=== PATIENT | male | born 1945 | race Caucasian/White ===

== ENCOUNTER 2022-02-02 05:16 | Emergency (ER) | payer MEDICARE, OTHER ==
[~2022-02-02] VITALS: Ht 177.8 cm; Wt 134.5 kg
[~2022-02-02 05:16] MED LIST: ALTACE2.5 M1 PO; ALTACE5 MG OR; AMOX/K CLAV500 MG PO; CIPRO500 MG OR; CLONIDINE0.2 MG OR; CLONIDINE0.2 MG PO; MAXZIDE-2537.5 MG/TA PO; METO50TA52 OR; METOPROL TAR25 MG PO; NYSTATIN100000 M3 TOP; TRIAMCINOLONE A0.12 EX; VICODIN ES1 TAB OR
[2022-02-02 05:33] VITALS: BP 183/91
[2022-02-02 06:01] VITALS: BP 167/78
[2022-02-02 06:05] LABS: HEMATOCRIT 43.2 % (39.0-50.0); HEMOGLOBIN 14.7 g/dl (14.0-18.0); IMMATURE GRANULOCYTES 0.1 % (0.0-5.0); MEAN CELL VOLUME 101.9 fL CALC (80.0-100.0); MEAN CORPUSCULAR HGB 34.7 pG CALC (26.0-32.0); NEUT# 3.99 thou/uL (1.82-7.42); RED BLOOD COUNT 4.24 mill/uL (4.70-6.10)
[2022-02-02 06:32] LABS: ALBUMIN 3.9 g/dL (3.2-5.0); ALKALINE PHOSPHATASE 65 u/l (38-126); ANION GAP 12 (6-22 (CALC)); BILIRUBIN, TOTAL 0.8 mg/dL (0.0-1.4); BUN 15 mg/dL (8-23); BUN/CREATININE RATIO 18 (12-20 (CALC)); CARBON DIOXIDE 24 mmol/l (22-30); CHLORIDE 103 mmol/l (95-108); CREATININE 0.8 mg/dL (0.7-1.3); GFR > 60 ML/MIN (>=60 (CALC)); GFR FOR AFR.AMER. > 60 ML/MIN (>=60 (CALC)); SGOT/AST 44 u/l (19-48); SODIUM 135 mmol/l (137-146); TOTAL PROTEIN 6.7 g/dL (6.3-8.2)
[2022-02-02 06:44] LABS: MYOGLOBIN 55 ng/mL (0 - 121)
[2022-02-02] MEDS ORDERED: EUTHYROX100 MCG PO (06:48)
[2022-02-02 06:53] VITALS: BP 187/95
[2022-02-02 07:01] VITALS: BP 175/85
[2022-02-02] MEDS ORDERED: HYDROCO/APAP1 TA9 PO (07:27)
[2022-02-02 07:31] VITALS: BP 163/90
[2022-02-02 08:08] VITALS: BP 163/90
== END 2022-02-02 08:08 | disposition home or self-care (01) ==
LOC: ED 05:16
PROVIDERS: Emergency Medicine
DX: M47.816 Spondylosis without myelopathy or radiculopathy, lumbar region (principal); M17.11 Unilateral primary osteoarthritis, right knee; M47.814 Spondylosis without myelopathy or radiculopathy, thoracic region; M47.812 Spondylosis without myelopathy or radiculopathy, cervical region; I10 Essential (primary) hypertension; Z95.5 Presence of coronary angioplasty implant and graft

== ENCOUNTER 2022-02-08 04:46 | Emergency (ER) | payer MEDICARE, OTHER ==
[~2022-02-08] VITALS: Ht 177.8 cm; Wt 132.7 kg
[~2022-02-08 04:46] MED LIST changes: +EUTHYROX100 MCG PO; +HYDROCO/APAP1 TA9 PO
[2022-02-08] MEDS ORDERED: ASPIRIN81 MG PO (05:18)
[2022-02-08] MEDS ORDERED: DIOVAN160 MG PO (05:18)
[2022-02-08 05:31] VITALS: BP 169/87
[2022-02-08 05:46] VITALS: BP 170/90
[2022-02-08 06:01] VITALS: BP 158/84
[2022-02-08 06:16] VITALS: BP 163/82
[2022-02-08] MEDS ORDERED: VOLTAREN75 MG PO (06:19)
[2022-02-08] MEDS ORDERED: TRAMADOL HCL50 MG PO (06:19)
[2022-02-08 06:35] VITALS: BP 163/82
== END 2022-02-08 06:36 | disposition home or self-care (01) ==
LOC: ED 04:46
DX: M15.9 Polyosteoarthritis, unspecified (principal); I10 Essential (primary) hypertension; Z95.5 Presence of coronary angioplasty implant and graft

== ENCOUNTER 2022-10-01 04:40 | Emergency (ER) | payer MEDICARE, OTHER ==
[2022-10-01] VITALS (32 sets, daily range): BP systolic 114–200; BP diastolic 57–120
[~2022-10-01] VITALS: Ht 177.8 cm; Wt 139.0 kg
[~2022-10-01 04:40] MED LIST changes: +ASPIRIN81 MG PO; +DIOVAN160 MG PO; +TRAMADOL HCL50 MG PO; +VOLTAREN75 MG PO
[2022-10-01] MEDS ORDERED: RAMIPRIL2.5 MG PO (05:47)
[2022-10-01] MEDS ORDERED: PERCOCET 5/325M1 TAB PO (05:47)
[2022-10-01] MEDS ORDERED: NORVASC5 M1 PO (05:48)
[2022-10-01] MEDS ORDERED: EZETIMIBE10 MG PO (05:49)
[2022-10-01 06:08] LABS: HEMOGLOBIN 13.6 g/dl (14.0-18.0); IMMATURE GRANULOCYTES 0.5 % (0.0-5.0); MEAN CORPUSCULAR HGB 38.7 pG CALC (26.0-32.0); MEAN CORPUSCULAR HGB CONC 34.9 g/dL CAL (32.0-36.0); NEUT# 7.43 thou/uL (1.82-7.42); RED BLOOD COUNT 3.51 mill/uL (4.70-6.10); RED CELL DISTRI WIDTH 15.9 % (11.5-15.5)
[2022-10-01 06:10] LABS: MEAN CELL VOLUME 111.1 fL CALC (80.0-100.0)
[2022-10-01 06:24] LABS: ALBUMIN 4.4 g/dL (3.2-5.0); ALKALINE PHOSPHATASE 71 u/l (38-126); ANION GAP 16 (6-22 (CALC)); CARBON DIOXIDE 25 mmol/l (22-30); CHLORIDE 101 mmol/l (95-108); CREATININE 0.9 mg/dL (0.7-1.3); GFR FOR AFR.AMER. > 60 ML/MIN (>=60 (CALC)); GFR OTHER RACES > 60 ML/MIN (>=60 (CALC)); POTASSIUM 3.5 mmol/l (3.5-5.1); SGOT/AST 60 u/l (19-48); SODIUM 138 mmol/l (137-146)
[2022-10-01 06:30] LABS: BILIRUBIN, TOTAL 1.8 mg/dL (0.0-1.4); BUN 38 mg/dL (8-23); BUN/CREATININE RATIO 42 (12-20 (CALC))
== END 2022-10-01 20:43 ==
LOC: ED 04:40
PROVIDERS: Emergency Medicine
DX: T81.89XA Other complications of procedures, not elsewhere classified, initial encounter (principal); M54.2 Cervicalgia; R13.10 Dysphagia, unspecified; I10 Essential (primary) hypertension; Y83.8 Other surgical procedures as the cause of abnormal reaction of the patient, or of later complication, without mention of misadventure at the time of the procedure; Z98.1 Arthrodesis status; Z95.5 Presence of coronary angioplasty implant and graft; Z91.041 Radiographic dye allergy status
CPT/HCPCS: Q9967

== ENCOUNTER 2023-06-20 15:41 | Observation (INO) | payer MEDICARE, OTHER ==
[~2023-06-20] VITALS: Ht 177.8 cm; Wt 140.6 kg
[2023-06-20] VITALS (13 sets, daily range): BP systolic 134–189; BP diastolic 71–108
[~2023-06-20 15:41] MED LIST changes: +EZETIMIBE10 MG PO; +NORVASC5 M1 PO; +PERCOCET 5/325M1 TAB PO; +RAMIPRIL2.5 MG PO
--- NOTE | 2023-06-20 16:03 | NUR ---
PATIENT TAKEN TO ROOM 12 BY WHEELCHAIR.
[2023-06-20 17:07] LABS: BASO% 0.2 % (0-3); EOS% 4.5 % (0-8); HEMATOCRIT 36.7 % (39.0-50.0); HEMOGLOBIN 11.9 g/dl (14.0-18.0); IMMATURE GRANULOCYTES 0.2 % (0.0-5.0); LYMPH% 14.7 % (15-41); MEAN CELL VOLUME 112.2 fL CALC (80.0-100.0); MEAN CORPUSCULAR HGB 36.4 pG CALC (26.0-32.0); MEAN CORPUSCULAR HGB CONC 32.4 g/dL CAL (32.0-36.0); MONO% 11.1 % (2-13); NEUT# 6.04 thou/uL (1.82-7.42); NEUT% 69.3 % (42-76); RED BLOOD COUNT 3.27 mill/uL (4.70-6.10)
[2023-06-20 17:18] LABS: ALKALINE PHOSPHATASE 85 u/l (38-126); ANION GAP 17 (6-22 (CALC)); BILIRUBIN, TOTAL 0.6 mg/dL (0.2-1.3); BUN 22 mg/dL (8-23); BUN/CREATININE RATIO 27 (12-20 (CALC)); CARBON DIOXIDE 21 mmol/l (22-30); CHLORIDE 101 mmol/l (95-108); CREATININE 0.8 mg/dL (0.7-1.3); GFR FOR AFR.AMER. > 60 ML/MIN (>=60 (CALC)); GFR OTHER RACES > 60 ML/MIN (>=60 (CALC)); POTASSIUM 3.8 mmol/l (3.5-5.1); SGOT/AST 66 u/l (19-48); SODIUM 135 mmol/l (137-146); TOTAL PROTEIN 6.6 g/dL (6.3-8.2)
--- NOTE | 2023-06-20 18:30 | NUR ---
PT CONTINUES TO HAVE PAIN AND WANTS TO GO HOME IF WE CANT GIVE HIM MORE FOR PAIN. PT REFUSES TO HAVE HIS LEGS ELEVATED.
--- NOTE | 2023-06-20 19:38 | NUR ---
REPORT TO ALIDA SCHMITZ.
--- NOTE | 2023-06-20 20:50 | NUR ---
REPORT RECIEVED FROM ER. PT A/OX3. RESPIRATIONS EVEN AND UNLABORED ON ROOM AIR. LUNG SOUNDS CLEAR. HERT RHYTHM NORMAL WITH TELE IN PLACE. BOWEL SOUNDS ACTIVE, LBM 06/20/23. #18G LFA PATENT. WERNER NOTED TO RLE. BLE EDEMADOUS WITH CRUSTED AREAS. PT STATES THIS HAS BEEN GOING ON FOR MONTHS BUT HAS NOT SEEN ANYONE FOR IT. PHOTOS OBTAINED AND DRY DRESSING APPLIED. ELEVATED WITH PILLOWS. PT STATES PAIN IS NOW 7/10 AFTER MEDICATED. BELONGING RECORDED, $2,539.00 NOTED, COUNTED WITH BOTH PT AND AINSLEY KIRBY. MONEY TO REMAIN IN SECURITY BAG IN PT BAG UNTIL DERTERMINING IF HE WILL STAY ANOTHER NIGHT. MONEY REMAINS SEALED IN SECURURTY BAG WITH THE REST OF THE PT BELONGINGS. HOME MED IN TO SEND TO PHARMACY IN AM. PT ORIENTED TO ROOM AND CALL LIGHT SYSTEM. ALL SAFETY PRECAUTIONS ARE IN PLACE WITH CALL LIGHT IN REACH.
--- NOTE | 2023-06-20 21:25 | NUR ---
RECIEVED CRITICAL LACTIC RESULTING IN 3.5. DR DAS AWARE OF TREND ORDERS ARE IN PLACE. PNEUDRAULIC SYSTEMS MECHANIC INFORMED OF ORDERS IN PLACE
[2023-06-20] MEDS ORDERED: HYDROCHLOROT25 MG PO (21:51)
[2023-06-20] MEDS ORDERED: TRULICITY0.75 MG/0. (21:56)
[2023-06-21 00:28] VITALS: BP 159/69
--- NOTE | 2023-06-21 01:18 | NUR ---
PT RESTING IN SEMI FOWLERS POSITION. RESPIRATIONS EVEN AND UNLABORED ON ROOM AIR. PT C/O OF BLE PAIN, REQUEST TYLENOL AND ASPIRIN. PT INFORMED ONLY TYLENOL WOULD BE AVAILABLE IN THE NEXT HOUR. PT QUESTIONS ORDER FOR MORPHINE AND STATES "IF IM NOT GOING TO GET ANYTHING FOR THIS PAIN I AM LEAVING." PT INFORMED THAT MD HAD ORDERS FOR TYLENOL THAT HE WOULD RECIEVE ORDERED. PT INFORMED MORPHINE WAS NOT AN ACTIVE ORDER BECAUSE HE STATED IT DID NOT WORK. PT AGREES TO WAIT FOR TYLENOL. DENIES OF ANY NEEDS. ALL SAFETY PRECAUTIONS IN PLACE WITH CALL LIGHT IN REACH
[2023-06-21 03:58] VITALS: BP 141/61
--- NOTE | 2023-06-21 03:59 | NUR ---
PT RESTING IN SEMI FOWLERS POSITION. RESPIRATIONS EVEN AND UNLABORED ON ROOM AIR. TELE MONITORING IN PLACE. IVF INFUSING PER ORDER. DRESSING TO RLE REMAINS CDI. BLE ELEVATED. PT ENIES OF ANY NEEDS. ALL SAFETY PRECAUTIONS ARE IN PLACE WITH CALL LIGHT IN REACH
[2023-06-21 06:10] VITALS: BP 130/62
[2023-06-21 06:50] LABS: HEMATOCRIT 33.6 % (39.0-50.0); HEMOGLOBIN 11.1 g/dl (14.0-18.0); MEAN CELL VOLUME 110.5 fL CALC (80.0-100.0); MEAN CORPUSCULAR HGB 36.5 pG CALC (26.0-32.0); RED BLOOD COUNT 3.04 mill/uL (4.70-6.10); RED CELL DISTRI WIDTH 15.9 % (11.5-15.5)
[2023-06-21 07:12] LABS: ALKALINE PHOSPHATASE 70 u/l (38-126); ANION GAP 9 (6-22 (CALC)); BUN 20 mg/dL (8-23); BUN/CREATININE RATIO 26 (12-20 (CALC)); CARBON DIOXIDE 25 mmol/l (22-30); CHLORIDE 103 mmol/l (95-108); CREATININE 0.8 mg/dL (0.7-1.3); GFR FOR AFR.AMER. > 60 ML/MIN (>=60 (CALC)); GFR OTHER RACES > 60 ML/MIN (>=60 (CALC)); POTASSIUM 3.8 mmol/l (3.5-5.1); SGOT/AST 66 u/l (19-48); SODIUM 133 mmol/l (137-146); TOTAL PROTEIN 5.3 g/dL (6.3-8.2)
[2023-06-21 07:20] LABS: ALBUMIN 3.1 g/dL (3.2-5.0)
--- NOTE | 2023-06-21 08:41 | NUR ---
PT ACCIDENTALLY DISLODGED HIS IV DURING HIS BATH.
[2023-06-21 11:31] VITALS: BP 110/56
--- NOTE | 2023-06-21 13:27 | NUR ---
S: MARTIN LANTIGUA is a 78 M who presents with cellulitis of right lower extremity. He has a history of diabetes, HTN, and obesity. All medications in patient's chart were reviewed. O: VS: BP 110/56, P 85, RR 19,T 97.5 W 140.6 kg, HT 70 in, Scr=0.8, CrCl= 67.8 ml/min A: Blood culture is pending. Wound culture is pending. P: Patient is on ceftriaxone 1 g IV q24h. Vancomycin ordered for pharmacy to dose. Start Vancomycin 1250 mg IV Q12H. Vancomycin trough is drawn before the 4th dose on 06/22/23@2030. Vancomycin goal trough is between 10-15 mcg/ml. Pharmacy will follow and or advise on antibiotics use as needed.
[2023-06-21] MEDS ORDERED: AMOX/K CLAV875 M1 PO (16:50)
[2023-06-21] MEDS ORDERED: LASIX 20 MG TAB20 MG PO (16:50)
== END 2023-06-21 16:56 | disposition home health service (06) ==
LOC: ED 15:41 → ED-I 17:43 → ED 18:10 → MS2 18:11
PROVIDERS: Family Medicine; ADMIT Student in an Organized Health Care Education/Training Program; ATTEND Student in an Organized Health Care Education/Training Program
DX: L03.115 Cellulitis of right lower limb (principal); I87.2 Venous insufficiency (chronic) (peripheral); R60.0 Localized edema; E87.20 Acidosis, unspecified; I10 Essential (primary) hypertension; E11.9 Type 2 diabetes mellitus without complications; E66.9 Obesity, unspecified; Z95.5 Presence of coronary angioplasty implant and graft
CPT/HCPCS: J3370

== ENCOUNTER 2023-11-20 21:24 | Inpatient (IN) | payer MEDICARE, OTHER ==
[2023-11-20] VITALS (7 sets, daily range): BP systolic 84–215; BP diastolic 34–131
[~2023-11-20] VITALS: Ht 180.3 cm; Wt 108.3 kg
[~2023-11-20 21:24] MED LIST changes: +AMOX/K CLAV875 M1 PO; +HYDROCHLOROT25 MG PO; +LASIX 20 MG TAB20 MG PO; +METFORMIN500 M2 PO; +TRULICITY0.75 MG/0.
[2023-11-20 22:22] LABS: BASO% 0.1 % (0-3); EOS% 0.5 % (0-8); HEMATOCRIT 32.3 % (39.0-50.0); HEMOGLOBIN 11.5 g/dl (14.0-18.0); IMMATURE GRANULOCYTES 0.6 % (0.0-5.0); LYMPH% 10.8 % (15-41); MEAN CORPUSCULAR HGB 34.3 pG CALC (26.0-32.0); MEAN CORPUSCULAR HGB CONC 35.6 g/dL CAL (32.0-36.0); MONO% 6.3 % (2-13); NEUT# 10.57 thou/uL (1.82-7.42); NEUT% 81.7 % (42-76); RED BLOOD COUNT 3.35 mill/uL (4.70-6.10); RED CELL DISTRI WIDTH 20.7 % (11.5-15.5)
[2023-11-20 22:24] LABS: MEAN CELL VOLUME 96.4 fL CALC (80.0-100.0)
[2023-11-20 22:33] LABS: ALBUMIN 2.8 g/dL (3.2-5.0); BILIRUBIN, TOTAL 1.5 mg/dL (0.2-1.3); TOTAL PROTEIN 5.4 g/dL (6.3-8.2)
[2023-11-20 22:47] LABS: CREATININE 2.2 mg/dL (0.7-1.3)
[2023-11-20 22:49] LABS: POTASSIUM 2.1 mmol/l (3.5-5.1)
[2023-11-20 23:04] LABS: TSH, 3RD GENERATION 2.16 uIU/mL (0.47 - 4.68)
[2023-11-20 23:30] LABS: URINE BLOOD DIPSTICK Negative (NEGATIVE); URINE GLUCOSE - DIPSTICK Negative (NEGATIVE); URINE KETONE Negative (NEGATIVE); URINE LEUK ESTERASE Negative (NEGATIVE); URINE NITRITE - DIPSTICK Negative (Negative); URINE PROTEIN - DIPSTICK 30 mg/dL (NEG-TRACE); URINE SPECIFIC GRAVITY 1.015; URINE UROBILINOGEN - DIPSTICK 0.2 E.U./dL (0.2)
[2023-11-20 23:33] LABS: URINE COLOR Yellow
[2023-11-20 23:37] LABS: URINE BACTERIA FEW hpf; URINE EPITHELIAL CELLS FEW EPI/hpf (0-FEW); URINE FINE GRAN CAST FEW lpf; URINE HYALINE CAST FEW lpf (NONE-RARE); URINE MUCUS FEW hpf (NONE-FEW); URINE RBC 0-2 RBC/hpf (0-5)
[2023-11-21 00:01] VITALS: BP 130/99
[2023-11-21 00:16] VITALS: BP 101/53
[2023-11-21 01:54] VITALS: BP 136/53
[2023-11-21 05:08] LABS: BASO% 0.1 % (0-3); EOS% 0.7 % (0-8); HEMATOCRIT 28.7 % (39.0-50.0); HEMOGLOBIN 10.5 g/dl (14.0-18.0); IMMATURE GRANULOCYTES 0.5 % (0.0-5.0); LYMPH% 15.2 % (15-41); MEAN CELL VOLUME 95.3 fL CALC (80.0-100.0); MEAN CORPUSCULAR HGB 34.9 pG CALC (26.0-32.0); MEAN CORPUSCULAR HGB CONC 36.6 g/dL CAL (32.0-36.0); MONO% 7.5 % (2-13); NEUT# 8.98 thou/uL (1.82-7.42); RED BLOOD COUNT 3.01 mill/uL (4.70-6.10)
[2023-11-21 05:15] LABS: CREATININE 1.9 mg/dL (0.7-1.3); POTASSIUM 2.5 mmol/l (3.5-5.1)
[2023-11-21 06:49] VITALS: BP 85/34
[2023-11-21 10:48] VITALS: BP 90/52
[2023-11-21 19:33] VITALS: BP 123/58
[2023-11-22 01:56] VITALS: BP 104/60
[2023-11-22 04:45] VITALS: BP 104/46
[2023-11-22 05:53] LABS: BILIRUBIN, TOTAL 1.2 mg/dL (0.2-1.3); CREATININE 1.8 mg/dL (0.7-1.3); POTASSIUM 2.8 mmol/l (3.5-5.1); TOTAL PROTEIN 4.4 g/dL (6.3-8.2)
[2023-11-22 05:54] LABS: ALBUMIN 2.2 g/dL (3.2-5.0); MAGNESIUM 1.7 mg/dL (1.6-2.3)
[2023-11-22 07:21] VITALS: BP 111/49
[2023-11-22 09:51] LABS: BASO% 0.2 % (0-3); EOS% 2.7 % (0-8); HEMATOCRIT 31.6 % (39.0-50.0); HEMOGLOBIN 10.9 g/dl (14.0-18.0); IMMATURE GRANULOCYTES 1.1 % (0.0-5.0); LYMPH% 15.6 % (15-41); MEAN CORPUSCULAR HGB 34.5 pG CALC (26.0-32.0); MEAN CORPUSCULAR HGB CONC 34.5 g/dL CAL (32.0-36.0); MONO% 7.5 % (2-13); NEUT# 7.14 thou/uL (1.82-7.42); NEUT% 72.9 % (42-76); RED BLOOD COUNT 3.16 mill/uL (4.70-6.10); RED CELL DISTRI WIDTH 21.9 % (11.5-15.5)
[2023-11-22 11:15] VITALS: BP 96/48
[2023-11-22 15:10] VITALS: BP 95/41
[2023-11-22 21:09] VITALS: BP 104/55
[2023-11-23 00:09] VITALS: BP 125/63
[2023-11-23 03:51] VITALS: BP 114/64
[2023-11-23 06:59] LABS: BASO% 0.2 % (0-3); EOS% 4.5 % (0-8); HEMATOCRIT 32.2 % (39.0-50.0); HEMOGLOBIN 10.7 g/dl (14.0-18.0); LYMPH% 17.8 % (15-41); MEAN CELL VOLUME 103.2 fL CALC (80.0-100.0); MEAN CORPUSCULAR HGB 34.3 pG CALC (26.0-32.0); MEAN CORPUSCULAR HGB CONC 33.2 g/dL CAL (32.0-36.0); MONO% 7.9 % (2-13); NEUT# 7.01 thou/uL (1.82-7.42); NEUT% 68.6 % (42-76); RED BLOOD COUNT 3.12 mill/uL (4.70-6.10); RED CELL DISTRI WIDTH 22.8 % (11.5-15.5)
[2023-11-23 07:16] LABS: ALBUMIN 2.2 g/dL (3.2-5.0); CREATININE 1.5 mg/dL (0.7-1.3); POTASSIUM 3.4 mmol/l (3.5-5.1)
[2023-11-23 07:18] VITALS: BP 120/40
[2023-11-23 07:20] LABS: ALBUMIN 2.2 g/dL (3.2-5.0); BILIRUBIN, TOTAL 0.8 mg/dL (0.2-1.3); CREATININE 1.4 mg/dL (0.7-1.3); MAGNESIUM 1.6 mg/dL (1.6-2.3); TOTAL PROTEIN 4.6 g/dL (6.3-8.2)
[2023-11-23 07:23] LABS: POTASSIUM 3.4 mmol/l (3.5-5.1)
[2023-11-23 12:00] VITALS: BP 112/55
[2023-11-23 14:30] VITALS: BP 113/73
[2023-11-23 19:32] VITALS: BP 142/80
[2023-11-24 00:18] VITALS: BP 118/63
[2023-11-24 04:53] VITALS: BP 135/83
[2023-11-24 06:48] LABS: BASO% 0.1 % (0-3); EOS% 2.3 % (0-8); HEMATOCRIT 34.7 % (39.0-50.0); HEMOGLOBIN 11.6 g/dl (14.0-18.0); IMMATURE GRANULOCYTES 0.8 % (0.0-5.0); LYMPH% 15.4 % (15-41); MEAN CELL VOLUME 104.5 fL CALC (80.0-100.0); MEAN CORPUSCULAR HGB 34.9 pG CALC (26.0-32.0); MEAN CORPUSCULAR HGB CONC 33.4 g/dL CAL (32.0-36.0); MONO% 7.1 % (2-13); NEUT# 9.09 thou/uL (1.82-7.42); NEUT% 74.3 % (42-76); RED BLOOD COUNT 3.32 mill/uL (4.70-6.10); RED CELL DISTRI WIDTH 23.6 % (11.5-15.5)
[2023-11-24 07:15] LABS: ALBUMIN 2.4 g/dL (3.2-5.0); BUN 16 mg/dL (8-23); CARBON DIOXIDE 20 mmol/l (22-30); CHLORIDE 115 mmol/l (95-108); CREATININE 1.3 mg/dL (0.7-1.3); GFR FOR AFR.AMER. > 60 ML/MIN (>=60 (CALC)); GFR OTHER RACES 53 ML/MIN (>=60 (CALC)); SODIUM 142 mmol/l (137-146)
[2023-11-24 07:17] LABS: POTASSIUM 4.3 mmol/l (3.5-5.1)
[2023-11-24 09:34] VITALS: BP 131/79
[2023-11-24 16:27] VITALS: BP 109/38
[2023-11-24 16:39] VITALS: BP 124/76
[2023-11-24 19:33] VITALS: BP 133/67
[2023-11-25 00:15] VITALS: BP 124/69
[2023-11-25 04:41] VITALS: BP 133/80
[2023-11-25 05:48] LABS: BASO% 0.3 % (0-3); EOS% 4.8 % (0-8); HEMATOCRIT 34.2 % (39.0-50.0); HEMOGLOBIN 11.8 g/dl (14.0-18.0); IMMATURE GRANULOCYTES 0.6 % (0.0-5.0); LYMPH% 18.6 % (15-41); MEAN CELL VOLUME 104.6 fL CALC (80.0-100.0); MEAN CORPUSCULAR HGB 36.1 pG CALC (26.0-32.0); MEAN CORPUSCULAR HGB CONC 34.5 g/dL CAL (32.0-36.0); MONO% 7.3 % (2-13); NEUT# 7.92 thou/uL (1.82-7.42); NEUT% 68.4 % (42-76); RED BLOOD COUNT 3.27 mill/uL (4.70-6.10); RED CELL DISTRI WIDTH 22.9 % (11.5-15.5)
[2023-11-25 05:55] LABS: ALBUMIN 2.4 g/dL (3.2-5.0); ALKALINE PHOSPHATASE 151 u/l (38-126); BILIRUBIN, TOTAL 0.9 mg/dL (0.2-1.3); BUN 15 mg/dL (8-23); BUN/CREATININE RATIO 12 (12-20 (CALC)); CARBON DIOXIDE 19 mmol/l (22-30); CHLORIDE 114 mmol/l (95-108); CREATININE 1.2 mg/dL (0.7-1.3); GFR FOR AFR.AMER. > 60 ML/MIN (>=60 (CALC)); GFR OTHER RACES 58 ML/MIN (>=60 (CALC)); MAGNESIUM 1.8 mg/dL (1.6-2.3); SGOT/AST 73 u/l (19-48); SODIUM 138 mmol/l (137-146); TOTAL PROTEIN 4.8 g/dL (6.3-8.2)
[2023-11-25 06:06] LABS: ANION GAP 8 (6-22 (CALC)); POTASSIUM 3.3 mmol/l (3.5-5.1)
[2023-11-25 06:46] VITALS: BP 129/68
[2023-11-25 10:58] VITALS: BP 123/83
[2023-11-25] MEDS ORDERED: QUETIAPINE FUMA25 MG PO (11:55)
[2023-11-25] MEDS ORDERED: DOXYCYCLINE HY100 MG PO (11:55)
[2023-11-25] MEDS ORDERED: LASIX20 MG PO (11:58)
== END 2023-11-25 14:47 | DRG 603 ==
LOC: ED 21:24 → ED-I 23:40 → ED 23:54 → MS2 23:55
PROVIDERS: Family Medicine; Internal Medicine Nephrology; Nurse Practitioner Family; Student in an Organized Health Care Education/Training Program; ADMIT Internal Medicine; ATTEND Internal Medicine
DX: L03.116 Cellulitis of left lower limb (principal); N17.9 Acute kidney failure, unspecified; F03.B11 Unspecified dementia, moderate, with agitation; E87.1 Hypo-osmolality and hyponatremia; E87.6 Hypokalemia; L03.115 Cellulitis of right lower limb; I95.9 Hypotension, unspecified; I12.9 Hypertensive chronic kidney disease with stage 1 through stage 4 chronic kidney disease, or unspecified chronic kidney disease; E11.22 Type 2 diabetes mellitus with diabetic chronic kidney disease; N18.2 Chronic kidney disease, stage 2 (mild); I87.2 Venous insufficiency (chronic) (peripheral); E86.9 Volume depletion, unspecified; I25.10 Atherosclerotic heart disease of native coronary artery without angina pectoris; E03.9 Hypothyroidism, unspecified; Z60.2 Problems related to living alone; Z95.5 Presence of coronary angioplasty implant and graft; Z79.84 Long term (current) use of oral hypoglycemic drugs; Z20.822 Contact with and (suspected) exposure to COVID-19
CPT/HCPCS: J0692; J3475